=== PATIENT | male | born 1985 | race Caucasian/White ===

== ENCOUNTER 2017-07-03 16:37 | Emergency (ER) | payer SELFPAY ==
[~2017-07-03 16:37] MED LIST: BACT800T5 PO; CEPH500C3 PO
[2017-07-03 16:43] VITALS: BP 127/82; PULSE 130; RESP 20; TEMP 97.4; O2SAT 98
[2017-07-03] MEDS ORDERED: SODIUM CHLOR 0.9% 1000 ML INJ 1,000 ML IV SCH (17:09)
[2017-07-03] MEDS ORDERED: SODIUM CHLORIDE 0.9% FLUSH 10 ML FLUSH IV FLUSH PRN (17:15)
[2017-07-03] MEDS ORDERED: DIATRIZOATE MEGLUM/DIATRIZOATE SOD 9 ML CUP ONE (17:20)
--- NOTE | 2017-07-03 17:31 | PD ---
HPI Chief Complaint: Abdominal Pain Time Seen by Provider: 16:51 Travel History International Travel<30 days: No Contact w/Intl Traveler<30days: No Traveled to known affect area: No History of Present Illness HPI 32 yo M complains of abdominal pain for about 2 days. Yesterday the pain is worse hours persisted today and is in the right side. The patient also notes some spasms involving abdominal wall musculature. There has been no nausea vomiting or diarrhea. Last oral intake was about 10 hours prior, cereal. No similar prior episodes. Subjective fever reported yesterday however none today. 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 HEAD: Atraumatic. Normocephalic. EYES: Pupils equal and round. No scleral icterus. No injection or drainage. ENT: No nasal bleeding or discharge. Mucous membranes pink and moist. NECK: Trachea midline. No JVD. CARDIOVASCULAR: Tachycardia. Regular rhythm. RESPIRATORY: No accessory muscle use. Clear to auscultation. Breath sounds equal bilaterally. GASTROINTESTINAL: Soft. TTP RLQ/R abdomen. MUSCULOSKELETAL: Extremities without clubbing, cyanosis, or edema. No obvious deformities. NEUROLOGICAL: Awake and alert. No obvious cranial nerve deficits. Motor grossly within normal limits. Five out of 5 muscle strength in the arms and legs. Normal speech. PSYCHIATRIC: Appropriate mood and affect; insight and judgment normal. Data Data Last Documented VS Vital Signs Date Time Temp Pulse Resp B/P (MAP) Pulse Ox O2 Delivery O2 Flow Rate FiO2 07/03/17 17:43 18 98 Room Air 07/03/17 17:43 105 140/85 (103) 07/03/17 16:43 97.4 Orders Orders Complete Blood Count With Diff (07/03/17 17:09) Comprehensive Metabolic Panel (07/03/17 17:09) Lipase (07/03/17 17:09) Ct Abd/Pel W Iv Contrast(Rout) (07/03/17 17:09) Iv Access Insert/Monitor (07/03/17 17:09) Ecg Monitoring (07/03/17 17:09) Oximetry (07/03/17 17:09) Sodium Chlor 0.9% 1000 Ml Inj (Ns 1000 M (07/03/17 17:09) Sodium Chloride 0.9% Flush (Ns Flush) (07/03/17 17:15) Drug Screen, Random Urine (07/03/17 17:09) Alcohol (Ethanol) (07/03/17 17:09) Oral Contrast - Adult (07/03/17 17:15) Diatrizoate Liq ( Gastroview Liq) (07/03/17 17:20) Iohexol 350 Inj (Omnipaque 350 Inj) (07/03/17 18:43) Labs Laboratory Tests Test 07/03/17 17:30 07/03/17 17:35 Urine Opiates Screen POS Urine Barbiturates Screen NEG Urine Amphetamines Screen POS Urine Benzodiazepines Screen NEG Urine Cocaine Screen NEG Urine Cannabinoids Screen NEG White Blood Count 12.3 TH/MM3 Red Blood Count 5.13 MIL/MM3 Hemoglobin 14.8 GM/DL Hematocrit 45.3 % Mean Corpuscular Volume 88.2 FL Mean Corpuscular Hemoglobin 28.9 PG Mean Corpuscular Hemoglobin Concent 32.8 % Red Cell Distribution Width 11.8 % Platelet Count 213 TH/MM3 Mean Platelet Volume 8.5 FL Neutrophils (%) (Auto) 70.0 % Lymphocytes (%) (Auto) 20.8 % Monocytes (%) (Auto) 6.0 % Eosinophils (%) (Auto) 2.4 % Basophils (%) (Auto) 0.8 % Neutrophils # (Auto) 8.6 TH/MM3 Lymphocytes # (Auto) 2.6 TH/MM3 Monocytes # (Auto) 0.7 TH/MM3 Eosinophils # (Auto) 0.3 TH/MM3 Basophils # (Auto) 0.1 TH/MM3 CBC Comment DIFF FINAL Differential Comment Blood Urea Nitrogen 14 MG/DL Creatinine 0.91 MG/DL Random Glucose 108 MG/DL Total Protein 8.1 GM/DL Albumin 4.0 GM/DL Calcium Level 9.1 MG/DL Alkaline Phosphatase 76 U/L Aspartate Amino Transf (AST/SGOT) 32 U/L Alanine Aminotransferase (ALT/SGPT) 67 U/L Total Bilirubin 0.7 MG/DL Sodium Level 137 MEQ/L Potassium Level 3.4 MEQ/L Chloride Level 101 MEQ/L Carbon Dioxide Level 29.6 MEQ/L Anion Gap 6 MEQ/L Estimat Glomerular Filtration Rate 98 ML/MIN Lipase 124 U/L Ethyl Alcohol Level LESS THAN 3 MG/DL [facility] Medical Decision Making Medical Screen Exam Complete: Yes Emergency Medical Condition: Yes Medical Record Reviewed: Yes Differential Diagnosis Constipation, Gastritis, Acute Cholecystitis, Biliary Colic, Pancreatitis, PUGH , Hepatitis, Bowel Obstruction, Cystitis, Mesenteric Ischemia, AAA, Appendicitis , Renal Stone/Hydronephrosis, GERD, perforated viscous Narrative Course CBC & BMP Diagram 07/03/17 17:35 Total Protein 8.1, Albumin 4.0, Calcium Level 9.1, Alkaline Phosphatase 76, Aspartate Amino Transf (AST/SGOT) 32, Alanine Aminotransferase (ALT/SGPT) 67, Total Bilirubin 0.7 Lipase is normal The urine drug screen is positive for opiates and amphetamines The alcohol level is less than three There is no acute pathology and CT abdomen and pelvis. There is a fat- containing inguinal hernia on the left side. The patient has rested comfortably in the ER and has not required opioid analgesics. Unfortunately the drug screen is positive for opioids and amphetamines. The patient is stable for discharge home. Scripts as below. Diagnosis Primary Impression: Abdominal spasms Additional Impression: Polysubstance abuse Referrals: Primary Care Physician as needed Med/Other Pt SpecificInfo: Prescription(s) given Scripts Aluminum Hydroxide-Mag Carb Liq (Gaviscon Extra Strength R Liq) 508-475 Mg/10 Ml Susp 10-20 ML PO QID Y for HEARTBURN for 7 Days, ML 0 Refills Maximum 80 mL/24 hrs. Prov: Juan Garrett MD 07/03/17 Dicyclomine (Bentyl) 10 Mg Cap 10 MG PO TID Y for Bowel Management, #20 CAP 0 Refills Prov: Juan Garrett MD 07/03/17 Disposition: 01 DISCHARGE HOME Condition: Stable Juan Garrtet MD Jul 03, 2017 17:31
[2017-07-03 17:43] VITALS: BP 140/85; PULSE 105; RESP 18; O2SAT 98
[2017-07-03 17:50] LABS: AUTOMATED NEUTROPHIL # 8.6 TH/MM3 (1.8-7.7); BASOPHIL # 0.1 TH/MM3 (0-0.2); BASOPHIL % 0.8 % (0.0-2.0); EOSINOPHIL # 0.3 TH/MM3 (0-0.4); EOSINOPHIL % 2.4 % (0.0-4.0); HEMATOCRIT 45.3 % (39.0-51.0); HEMOGLOBIN 14.8 GM/DL (13.0-17.0); LYMPH % 20.8 % (9.0-44.0); LYMPHOCYTE # 2.6 TH/MM3 (1.0-4.8); MEAN CELL VOLUME 88.2 FL (80.0-100.0); MEAN CORPUSCULAR HEMOGLOBIN 28.9 PG (27.0-34.0); MEAN CORPUSCULAR HGB CONC 32.8 % (32.0-36.0); MEAN PLATELET VOLUME 8.5 FL (7.0-11.0); MONOCYTE # 0.7 TH/MM3 (0-0.9); PLATELET COUNT 213 TH/MM3 (150-450); RED BLOOD COUNT 5.13 MIL/MM3 (4.50-5.90); RED CELL DISTRIBUTION WIDTH 11.8 % (11.6-17.2); WHITE BLOOD COUNT 12.3 TH/MM3 (4.0-11.0)
[2017-07-03 18:05] LABS: CHLORIDE 101 MEQ/L (98-107); SODIUM (NA) 137 MEQ/L (136-145)
[2017-07-03 18:08] LABS: CALCIUM 9.1 MG/DL (8.5-10.1)
[2017-07-03 18:09] LABS: BICARBONATE 29.6 MEQ/L (21.0-32.0); BLOOD UREA NITROGEN 14 MG/DL (7-18)
[2017-07-03 18:12] LABS: ALT (GPT) 67 U/L (12-78); AST (GOT) 32 U/L (15-37); CREATININE 0.91 MG/DL (0.60-1.30); GLOMERULAR FILTRATION RATE 98 ML/MIN (>89)
[2017-07-03 18:13] LABS: TOTAL BILIRUBIN ADULT 0.7 MG/DL (0.2-1.0); TOTAL PROTEIN 8.1 GM/DL (6.4-8.2)
[2017-07-03 18:15] LABS: ALKALINE PHOSPHATASE 76 U/L (45-117)
[2017-07-03 18:16] LABS: GLUCOSE,RANDOM 108 MG/DL (74-106)
[2017-07-03] MEDS ORDERED: IOHEXOL 350 MG/ML 10 ML VIAL (for RAD DIAG) IVCONTRAST ONE (18:43)
--- NOTE | 2017-07-03 18:53 | RADRPT ---
EXAM DATE/TIME: 07/03/2017 18:33 [facility] COMPARISON: No previous studies available for comparison. INDICATIONS : Right lower quadrant pain. IV CONTRAST: 85 cc Omnipaque 350 (iohexol) IV ORAL CONTRAST: Prescribed oral contrast ingested. RADIATION DOSE: 5.51 CTDIvol (mGy) MEDICAL HISTORY : None SURGICAL HISTORY : None. ENCOUNTER: Initial ACUITY: 2 days PAIN SCALE: 5/10 LOCATION: Right lower quadrant TECHNIQUE: Volumetric scanning of the abdomen and pelvis was performed. Using automated exposure control and ad justment of the mA and/or kV according to patient size, radiation dose was kept as low as reasonably achievable to obtain optimal diagnostic quality images. DICOM format image data is available electro nically for review and comparison. FINDINGS: LOWER LUNGS: The visualized lower lungs are clear. LIVER: Homogeneous density without lesion. There is no dilation of the biliary tree. No calcified gallston es. SPLEEN: Normal size without lesion. PANCREAS: Within normal limits. KIDNEYS: Normal in size and shape. There is no mass, stone or hydronephrosis. ADRENAL GLANDS: Within normal limits. VASCULAR: There is no aortic aneurysm. BOWEL/MESENTERY: There is nonspecific gastric distention. No mass or inflammatory changes are demonstrated of the juan pablo rointestinal tract. The appendix is well-visualized and normal. ABDOMINAL WALL: Within normal limits. RETROPERITONEUM: There is no lymphadenopathy. BLADDER: No wall thickening or mass. REPRODUCTIVE: Within normal limits. INGUINAL: There is a fat-containing inguinal hernia on the left. The fat and spermatic cord appear mildly indur ated. MUSCULOSKELETAL: Within normal limits for patient age. CONCLUSION: 1. No etiology for right lower quadrant pain demonstrated. The appendix is normal. 2. Nonspecific distention of the stomach. I don't see a mass or inflammatory changes. 3. There is a small fat containing left inguinal hernia. Duglas Larson MD on July 03, 2017 at 18:48 Board Certified Radiologist. This report was verified electronically.
[2017-07-03] MEDS ORDERED: GAVISUS2 PO (18:57)
[2017-07-03] MEDS ORDERED: DICY10 PO (18:57)
[2017-07-03 19:07] VITALS: BP 132/84; TEMP 98.5
== END 2017-07-03 19:09 | disposition home or self-care (01) ==
LOC: PHED 16:37
DX: M62.838 Other muscle spasm (principal); K40.90 Unilateral inguinal hernia, without obstruction or gangrene, not specified as recurrent; F11.10 Opioid abuse, uncomplicated; F15.10 Other stimulant abuse, uncomplicated; R00.0 Tachycardia, unspecified; F17.200 Nicotine dependence, unspecified, uncomplicated
CPT/HCPCS: 74177; 80053; 80307; 83690; 85025; 96360; 99285; J7030; Q9963; Q9967